=== PATIENT | female | born 2000 | race Caucasian/White ===

== ENCOUNTER 2018-01-13 18:26 | Emergency (ER) | payer OTHER ==
[~2018-01-13] VITALS: Ht 172.7 cm; Wt 72.8 kg
[~2018-01-13 18:26] MED LIST: CYMBALTA60 MG PO; KEFLEX500 MG PO; NORCO 5/3251 TABLET PO; STOOL SOFTENER100 MG PO; VENTOLIN HFA18 GM IH; ZOFRAN4 MG PO
[2018-01-13 19:04] LABS: HEMATOCRIT 38.6 % (36.0-46.0); HEMOGLOBIN 13.5 G/DL (11.9-15.5); MCH 30.5 PG (29.0-34.0); MCV 87.1 FL (83-99); PLATELET COUNT 267 K/uL (156-360); RBC DIS.WIDTH-SD 38.8 % (39-53); RED BLOOD COUNT 4.43 M/uL (3.80-5.20); WHITE BLOOD COUNT 7.1 K/uL (4.1-10.2)
[2018-01-13 19:14] LABS: ALBUMIN 4.2 g/dL (3.2-4.8); CHLORIDE 107 mEq/L (99-109); POTASSIUM 3.8 mEq/L (3.7-5.4); SODIUM 138 mEq/L (136-147)
[2018-01-13 19:16] LABS: GLUCOSE 106 mg/dL (70-99)
[2018-01-13 19:17] LABS: TOTAL PROTEIN 7.3 g/dL (6.4-8.3)
[2018-01-13 19:18] LABS: TOTAL BILIRUBIN 0.5 mg/dL (0.0-1.0)
[2018-01-13 19:20] LABS: ALKALINE PHOSPHATASE 89 IU/L (3-129); CREATININE 0.9 mg/dL (0.6-1.3); GFR ESTIMATE (CALCULATED) > 59 mL/min/
[2018-01-13 19:21] LABS: UREA NITROGEN (BUN) 10 mg/dL (9-23)
[2018-01-13 19:22] LABS: AST (GOT) 20 IU/L (2-34)
[2018-01-13 19:23] LABS: ALT (GPT) 19 IU/L (3-49)
[2018-01-13 19:51] LABS: QUANTITATIVE HCG < 4.0 MIU/ML
[2018-01-13] MEDS ORDERED: DULCOLAX10 MG PR (20:40)
[2018-01-13] MEDS ORDERED: KRISTALOSE20 GM PO (20:40)
[2018-01-13 20:56] VITALS: BP 119/74
[2018-01-13 21:27] LABS: APPEARANCE CLEAR ((CLEAR)); BILIRUBIN NEGATIVE; BLOOD SMALL; COLOR YELLOW ((YELLOW)); GLUCOSE (STRIP) NEGATIVE; KETONES NEGATIVE; LEUKOCYTES NEGATIVE; NITRITE NEGATIVE; PROTEIN (STRIP) NEGATIVE; SPECIFIC GRAVITY 1.013 (1.000-1.030); UROBILINOGEN 0.2 MG/DL (0.2-1.0)
[2018-01-13 21:38] LABS: BACTERIA RARE /HPF; EPITHELIAL CELLS 2+ /HPF; HYALINE CASTS 0-5 /LPF; MUCUS TRACE /LPF; RED BLOOD CELLS 0-5 /HPF (0-5); UCUL ADDED? NO; WHITE BLOOD CELLS 0-5 /HPF (0-5)
== END 2018-01-13 20:57 | disposition home or self-care (01) ==
LOC: EME 18:26
DX: K59.00 Constipation, unspecified (principal); R10.9 Unspecified abdominal pain; J45.909 Unspecified asthma, uncomplicated; F32.9 Major depressive disorder, single episode, unspecified; F41.9 Anxiety disorder, unspecified; Z72.0 Tobacco use
CPT/HCPCS: 74018; 80053; 81003; 84702; 85027; 99281; 99284

== ENCOUNTER 2018-01-15 13:28 | Emergency (ER) | payer OTHER ==
[~2018-01-15] VITALS: Ht 172.7 cm; Wt 72.3 kg
[~2018-01-15 13:28] MED LIST changes: +DULCOLAX10 MG PR; +KRISTALOSE20 GM PO
[2018-01-15 14:28] LABS: CARBON DIOXIDE (BICARBONATE) 29.1 MEQ/L (20-31)
[2018-01-15 14:30] LABS: HEMATOCRIT 41.1 % (36.0-46.0); HEMOGLOBIN 14.4 G/DL (11.9-15.5); MCH 30.3 PG (29.0-34.0); MCV 86.5 FL (83-99); PLATELET COUNT 275 K/uL (156-360); RBC DIS.WIDTH-CV 11.9 % (11.8-14.6); RBC DIS.WIDTH-SD 38.1 % (39-53); RED BLOOD COUNT 4.75 M/uL (3.80-5.20); WHITE BLOOD COUNT 7.4 K/uL (4.1-10.2)
[2018-01-15 14:38] LABS: ALBUMIN 4.3 g/dL (3.2-4.8)
[2018-01-15 14:39] LABS: CHLORIDE 107 mEq/L (99-109); POTASSIUM 4.2 mEq/L (3.7-5.4); SODIUM 139 mEq/L (136-147)
[2018-01-15 14:41] LABS: GLUCOSE 87 mg/dL (70-99); TOTAL PROTEIN 7.3 g/dL (6.4-8.3)
[2018-01-15 14:43] LABS: TOTAL BILIRUBIN 0.8 mg/dL (0.0-1.0)
[2018-01-15 14:44] LABS: ALKALINE PHOSPHATASE 81 IU/L (3-129)
[2018-01-15 14:45] LABS: GFR ESTIMATE (CALCULATED) > 59 mL/min/
[2018-01-15 14:46] LABS: AST (GOT) 23 IU/L (2-34); UREA NITROGEN (BUN) 10 mg/dL (9-23)
[2018-01-15 14:47] LABS: ALT (GPT) 22 IU/L (3-49)
[2018-01-15 14:54] LABS: QUANTITATIVE HCG < 4.0 MIU/ML
[2018-01-15 16:28] VITALS: BP 126/74
== END 2018-01-15 16:30 | disposition home or self-care (01) ==
LOC: EME 13:28
PROVIDERS: Nurse Practitioner Family
DX: J70.5 Respiratory conditions due to smoke inhalation (principal); J45.909 Unspecified asthma, uncomplicated; F32.9 Major depressive disorder, single episode, unspecified; F41.9 Anxiety disorder, unspecified; F17.200 Nicotine dependence, unspecified, uncomplicated
CPT/HCPCS: 71046; 80053; 82803; 84702; 85027; 99281; 99284